=== PATIENT | female | born 1990 | race Caucasian/White ===

== ENCOUNTER 2024-09-25 23:08 | Emergency (ER) | payer MEDICAID ==
[~2024-09-25] VITALS: Ht 152.4 cm; Wt 58.0 kg
[2024-09-25 23:28] VITALS: O2SAT 98
[2024-09-26] MEDS: LIDOCAINE HCL 1% 20ML VIAL INFIL ONE (00:45)
[2024-09-26] MEDS: ACETAMINOPHEN 325MG TABLET PO ONE (01:17)
[2024-09-26] MEDS: TETANUS, DIPHTHERIA, PERTUSSIS VAC/PF 0.5ML (>10YR OLD) IM ONE (01:20)
[2024-09-26 02:21] VITALS: BP 111/62; PULSE 58; RESP 16; TEMP 36.6; O2SAT 98
== END 2024-09-26 02:23 | disposition home or self-care (01) ==
LOC: ER 23:08
DX: S61.012A Laceration without foreign body of left thumb without damage to nail, initial encounter (principal); X58.XXXA Exposure to other specified factors, initial encounter; Y93.89 Activity, other specified; Y92.89 Other specified places as the place of occurrence of the external cause; Y99.8 Other external cause status
CPT/HCPCS: 73130; 12001; 99283; 90715; 90471; J2003; Z7610